=== PATIENT | female | born 1985 | race Caucasian/White ===

== ENCOUNTER 2020-11-02 06:56 | Outpatient (CLI) | payer BC ==
[2020-11-03 03:12] LABS: SARS-CoV-2 MS2 Positive; SARS-CoV-2 N Gene Negative; SARS-CoV-2 S Gene Negative; SARS-CoV-2 by NAA Not Detected (NotDetected); SARS-CoV-2 orf1ab Negative
== END 2020-11-02 06:57 | disposition home or self-care (01) ==
LOC: LABBT 06:56
PROVIDERS: ATTEND Internal Medicine Gastroenterology
DX: Z01.812 Encounter for preprocedural laboratory examination (principal); Z20.828 Contact with and (suspected) exposure to other viral communicable diseases; K62.5 Hemorrhage of anus and rectum
CPT/HCPCS: 87635; U0003

== ENCOUNTER 2020-11-07 07:10 | Day surgery (SDC) | payer BC ==
[2020-11-06 12:25] VITALS: BMI 41.5
--- NOTE | 2020-11-07 09:07 | HP ---
HISTORY OF PRESENT ILLNESS: This is a 35-year-old female seen in the office because of rectal bleeding and diarrhea . She also complains of addominal pain with diarrhea and occasional constipation . There is no history of history of any fever or weight loss. The patient comes for a colonoscopy because of the above reason. ALLERGIES: NONE. SOCIAL HISTORY: Does not smoke or drink alcohol. MEDICAL ILLNESSES: 1. Bronchial asthma. 2. Depression and anxiety. 3. PTSD. 4. Obesity. 5. Chronic acid reflux. PHYSICAL EXAMINATION: GENERAL: She is obese, appears comfortable. VITAL SIGNS: Pulse is 70 and blood pressure 130/70. HEENT: Conjunctivae are clear. CARDIOVASCULAR: Normal heart sounds. LUNGS: Clear to auscultation. ABDOMEN: Soft. No organomegaly. No tenderness. No masses. ADMITTING DIAGNOSIS: A 35-year-old female with rectal bleeding, diarrhea, and constipation. PLAN: Colonoscopy. Job ID: [id number] MTDD
[2020-11-07] MEDS ORDERED: Lidocaine 1% PF 5 ML VIAL ONE (09:46)
[2020-11-07] MEDS ORDERED: PROPOFOL 200 MG/20 ML VIAL ONE (09:46)
--- NOTE | 2020-11-07 13:38 | OP ---
DATE OF PROCEDURE: 11/07/2020 OPERATIVE PROCEDURE: Colonoscopy. PREOPERATIVE DIAGNOSES: Rectal bleeding and diarrhea - constipation. POSTOPERATIVE DIAGNOSIS: Normal ileocolonoscopy. DESCRIPTION OF PROCEDURE: The patient was placed on her left lateral position and was given sedation by Anesthesia Department. A rectal exam was done. The scope was advanced into the rectum. No lesions felt on rectal exam. A Pentax videocolonoscope was introduced into the rectum and advanced all the way to the cecum. The prep was good. The mucosa appears normal throughout the colon. There was no colitis seen. The ileocecal wall appears healthy and the appendicular opening was well seen. The scope withdrawn to the terminal ileum. The ileal mucosa appears normal. Withdrawal of scope in the ileum to ascending colon, hepatic flexure, no lesion seen. The transverse colon, splenic flexure, descending colon, sigmoid colon, rectum, no lesions seen. DISCHARGE PLANNING: This is a 35-year-old female, came for a colonoscopy because of abdominal cramping pain, diarrhea, hematochezia, and also constipation. She had an ileocolonoscopy. The colonoscopy is completely normal. The ileal mucosa appears normal. DISCHARGE RECOMMENDATIONS: 1. The patient was advised to call me if she had abdominal pain, hematochezia, or fever. 2. High-fiber diet. 3. To come back to clinic in 2 weeks. Job ID: [id number]
== END 2020-11-07 10:15 | disposition home or self-care (01) ==
LOC: SDC 07:10
PROVIDERS: ATTEND Internal Medicine Gastroenterology
PROC: 0DJD8ZZ Inspection of Lower Intestinal Tract, Via Natural or Artificial Opening Endoscopic (ICD-10-PCS; principal; 2020-11-07)
DX: K92.1 Melena (principal); R19.7 Diarrhea, unspecified; K59.00 Constipation, unspecified; R10.9 Unspecified abdominal pain; J45.909 Unspecified asthma, uncomplicated; G47.30 Sleep apnea, unspecified; F32.9 Major depressive disorder, single episode, unspecified; F41.9 Anxiety disorder, unspecified; F43.10 Post-traumatic stress disorder, unspecified; K21.9 Gastro-esophageal reflux disease without esophagitis; E66.01 Morbid (severe) obesity due to excess calories; Z68.41 Body mass index [BMI] 40.0-44.9, adult; Z79.899 Other long term (current) drug therapy
CPT/HCPCS: J2704